=== PATIENT | male | born 1940 | race Caucasian/White ===

== ENCOUNTER 2017-01-16 08:34 | Inpatient (IN) | payer MEDICARE ==
--- NOTE | 2017-01-16 09:19 | EDM.PDOC ---
ED HPI GENERAL MEDICAL PROBLEM - General Chief Complaint: General Stated Complaint: SOB/HIGH BP Time Seen by Provider: 01/16/17 09:19 Source of Information: Reports: Patient, Family History Limitations: Reports: No Limitations - History of Present Illness INITIAL COMMENTS - FREE TEXT/NARRATIVE: pt has had increased sob. He i very sleepy and he does sleep alot. Onset: Gradual Duration: Day(s):, Getting Worse, Other (last 2-3 days he has been much more sob. ) Location: Reports: Chest, Lower Extremity, Left, Lower Extremity, Right Associated Symptoms: Reports: Shortness of Breath, Weakness - Related Data Allergies Allergy/AdvReac Type Severity Reaction Status Date / Time No Known Allergies Allergy Verified 01/16/17 08:48 Home Meds: Home Meds Aspirin/Calcium Carbonate/Mag [Aspirin Buffered 325 mg Tab] 325 mg PO DAILY 05/10 [History] Atenolol [Tenormin] 50 mg PO BID 02/04/14 [History] Doxazosin Mesylate [Cardura] 8 mg PO DAILY 02/04/14 [History] Dutasteride [Avodart] 0.5 mg PO DAILY 02/04/14 [History] Lisinopril [Lisinopril] 40 mg PO BID 02/04/14 [History] Multivit with Calcium,Iron,Min [Essential Daily] 1 each PO DAILY 02/04/14 [ History] Sildenafil [Viagra] 100 mg PO DAILY PRN 02/04/14 [History] Simvastatin [Simvastatin] 40 mg PO BEDTIME 02/04/14 [History] glyBURIDE [Glyburide] 5 mg PO BID 02/04/14 [History] metFORMIN [Glucophage XR] 750 mg PO BID 02/04/14 [History] metroNIDAZOLE [metroNIDAZOLE 0.75% Cream] 1 applic TOP BID 02/04/14 [History] Acetaminophen [Acetaminophen Extra Strength] 500 mg PO DAILY 02/15/14 [History] Hydrochlorothiazide 25 mg PO DAILY 02/15/14 [History] Triamcinolone Acetonide [Triamcinolone Acetonide 0.1% Oint] 1 dose TOP ASDIRECTED 01/16/17 [History] Past Medical History Cardiovascular History: Reports: CAD, High Cholesterol, Hypertension, [place] Genitourinary History: Reports: Prostate Disorder Musculoskeletal History: Reports: Fracture Other Musculoskeletal History: shoulder [place] 2014 Endocrine/Metabolic History: Reports: Diabetes, Type II Hematologic History: Reports: Other (See Below) Other Hematologic History: takes asa every day since bypass Oncologic (Cancer) History: Reports: Other (See Below) Other Oncologic History: skin Dermatologic History: Reports: Other (See Below) Other Dermatologic History: see 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 for 'sun spots' - Infectious Disease History Infectious Disease History: Reports: Chicken Pox, Measles, Mumps - Past Surgical History HEENT Surgical History: Reports: Tonsillectomy Cardiovascular Surgical History: Reports: Coronary Artery Bypass GI Surgical History: Reports: Hernia, Inguinal Social & Family History - Tobacco Use Smoking Status *Q: Never Smoker Second Hand Smoke Exposure: No - Alcohol Use Days Per Week of Alcohol Use: 3 Number of Drinks Per Day: 1 Total Drinks Per Week: 3 - Recreational Drug Use Recreational Drug Use: No ED ROS GENERAL - Review of Systems Review Of Systems: See Below Constitutional: Reports: No Symptoms HEENT: Reports: No Symptoms Respiratory: Reports: Shortness of Breath, Other (poor activity tolerane. ) Cardiovascular: Reports: Dyspnea on Exertion, Edema, Other (pt ststes he is often having chest pain which follows eating. He will take 3 asa and he gets relief of the pain. ) Endocrine: Reports: No Symptoms GI/Abdominal: Reports: No Symptoms : Reports: Other (pt had some incontinence of urine problems. ) Musculoskeletal: Reports: No Symptoms Skin: Reports: No Symptoms Neurological: Reports: Other ( difficulty remembering whether he took his meds or not. ) Psychiatric: Reports: No Symptoms ED EXAM, GENERAL - Physical Exam Exam: See Below Free Text/Narrative:: pt arrived with sob and leg swelling. He also states he gets chest pain usually following eating. This is reliefed by 3 asa. Exam Limited By: No Limitations General Appearance: Alert, Other (pt seemes like he is hving difficulty remembering things this am.pupils are equal and reactive. ) Ears: Normal TMs Nose: Normal Inspection Throat/Mouth: Normal Inspection Head: Atraumatic Neck: Normal Inspection Respiratory/Chest: Other (pt gets sob with activity. He does drop his sats down in the high 80s. ) GI/Abdominal: Soft, Non-Tender (Male) Exam: Deferred Rectal (Males) Exam: Deferred Back Exam: Normal Inspection Extremities: Pedal Edema, Other (pt has plus 3 pitting edema. ) Neurological: Alert, Oriented, Normal Cognition Psychiatric: Normal Affect Course - Vital Signs Last Recorded V/S: Last Vital Signs Temp 37.2 C 01/16/17 08:45 Pulse 56 L 01/16/17 11:21 Resp 14 01/16/17 11:21 BP 181/77 H 01/16/17 11:21 Pulse Ox 92 L 01/16/17 11:21 - Orders/Labs/Meds Orders: Active Orders 24 hr Category Date Time Status EKG Documentation Completion [RC] ASDIRECTED Care 01/16/17 09:06 Active Chest 2V [CR] Stat Exams 01/16/17 09:07 Taken Sodium Chloride 0.9% [Saline Flush] Med 01/16/17 09:48 Active 10 ml FLUSH ASDIRECTED PRN Saline Lock Insert [OM.PC] Routine Oth 01/16/17 09:48 Ordered EKG 12 Lead [EK] Routine Ther 01/16/17 09:06 Ordered Medication Orders Sodium Chloride (Saline Flush) 10 ml FLUSH ASDIRECTED PRN PRN Reason: Keep Vein Open Last Admin: 01/16/17 11:00 Dose: 10 ml Labs: Laboratory Tests 01/16/17 01/16/17 01/16/17 Range/Units 09:15 09:15 09:15 WBC 9.5 (4.5-11.0) K/uL RBC 4.03 L (4.30-5.90) M/uL Hgb 12.4 (12.0-15.0) g/dL Hct 36.6 L (40.0-54.0) % MCV 91 (80-98) fL MCH 31 (27-31) pg MCHC 34 (32-36) % Plt Count 160 (150-400) K/uL Neut % (Auto) 78 H (36-66) % Lymph % (Auto) 14 L (24-44) % Williamson % (Auto) 7 H (2-6) % Eos % (Auto) 0 L (2-4) % Baso % (Auto) 0 (0-1) % Sodium 141 (140-148) mmol/L Potassium 4.1 (3.6-5.2) mmol/L Chloride 105 (100-108) mmol/L Carbon Dioxide 28 (21-32) mmol/L Anion Gap 7.7 (5.0-14.0) mmol/L BUN 19 H (7-18) mg/dL Creatinine 0.8 (0.8-1.3) mg/dL Est Cr Clr Drug Dosing 70.89 mL/min Estimated GFR (MDRD) > 60 (>60) Glucose 194 H (74-106) mg/dL Calcium 9.0 (8.5-10.1) mg/dL Total Bilirubin 0.9 (0.2-1.0) mg/dL AST 14 L (15-37) U/L ALT 15 (12-78) U/L Alkaline Phosphatase 61 (46-116) U/L Troponin I (0.000-0.056) ng/mL Hop-Y-Reajrtzuzms Pept 2219 H (5-450) pg/mL Total Protein 6.7 (6.4-8.2) g/dL Albumin 3.0 L (3.4-5.0) g/dL Globulin 3.7 H (2.3-3.5) g/dL Albumin/Globulin Ratio 0.8 L (1.2-2.2) TSH, Ultra Sensitive 0.646 (0.358-3.740) uIU/mL Urine Color Urine Appearance Urine pH (4.5-8.0) Ur Specific [place] (1.008-1.030) Urine Protein (NEGATIVE) mg/dL Urine Glucose (UA) (NEGATIVE) mg/dL Urine Ketones (NEGATIVE) mg/dL Urine Occult Blood (NEGATIVE) Urine Nitrite (NEGAITVE) Urine Bilirubin (NEGATIVE) Urine Urobilinogen (NORMAL) mg/dL Ur Leukocyte Esterase (NEGATIVE) Urine RBC (0-5) Urine WBC (0-5) Ur Epithelial Cells Amorphous Sediment Urine Bacteria Urine Mucus 01/16/17 01/16/17 Range/Units 10:32 11:03 WBC (4.5-11.0) K/uL RBC (4.30-5.90) M/uL Hgb (12.0-15.0) g/dL Hct (40.0-54.0) % MCV (80-98) fL MCH (27-31) pg MCHC (32-36) % Plt Count (150-400) K/uL Neut % (Auto) (36-66) % Lymph % (Auto) (24-44) % Williamson % (Auto) (2-6) % Eos % (Auto) (2-4) % Baso % (Auto) (0-1) % Sodium (140-148) mmol/L Potassium (3.6-5.2) mmol/L Chloride (100-108) mmol/L Carbon Dioxide (21-32) mmol/L Anion Gap (5.0-14.0) mmol/L BUN (7-18) mg/dL Creatinine (0.8-1.3) mg/dL Est Cr Clr Drug Dosing mL/min Estimated GFR (MDRD) (>60) Glucose (74-106) mg/dL Calcium (8.5-10.1) mg/dL Total Bilirubin (0.2-1.0) mg/dL AST (15-37) U/L ALT (12-78) U/L Alkaline Phosphatase (46-116) U/L Troponin I < 0.017 (0.000-0.056) ng/mL Kpr-Z-Njppuszmsrk Pept (5-450) pg/mL Total Protein (6.4-8.2) g/dL Albumin (3.4-5.0) g/dL Globulin (2.3-3.5) g/dL Albumin/Globulin Ratio (1.2-2.2) TSH, Ultra Sensitive (0.358-3.740) uIU/mL Urine Color Yellow Urine Appearance Clear Urine pH 6.0 (4.5-8.0) Ur Specific [place] 1.015 (1.008-1.030) Urine Protein Trace (NEGATIVE) mg/dL Urine Glucose (UA) 100 H (NEGATIVE) mg/dL Urine Ketones 15 H (NEGATIVE) mg/dL Urine Occult Blood Negative (NEGATIVE) Urine Nitrite Negative (NEGAITVE) Urine Bilirubin Negative (NEGATIVE) Urine Urobilinogen 4 (NORMAL) mg/dL Ur Leukocyte Esterase Negative (NEGATIVE) Urine RBC 0-5 (0-5) Urine WBC 0-5 (0-5) Ur Epithelial Cells Few Amorphous Sediment Not seen Urine Bacteria Few Urine Mucus Moderate Meds: Medications Generic Name Dose Route Start Last Admin Trade Name Freq PRN Reason Stop Dose Admin Sodium Chloride 10 ml 01/16/17 09:48 01/16/17 11:00 Saline Flush FLUSH 10 ml ASDIRECTED PRN Administration Keep Vein Open Discontinued Medications Generic Name Dose Route Start Last Admin Trade Name Oswaldo PRN Reason Stop Dose Admin Furosemide 60 mg 01/16/17 09:49 01/16/17 10:59 Lasix IVPUSH 01/16/17 09:50 60 mg ONETIME ONE Administration - Re-Assessments/Exams Free Text/Narrative Re-Assessment/Exam: 01/16/17 11:57 pt had normal trop. ekg looked good. His bnp is elevated. Some congestion on the chest xray. He has put out 600 to 700 c with the 60 mg of lasix. Departure - Departure Time of Disposition: 11:59 Disposition: Admitted As Inpatient 66 Condition: Fair Clinical Impression: Right-sided heart failure, Angina at rest, Diabetes mellitus - Discharge Information Forms: ED Department Discharge Care Plan Goals: admit to Dr juan. - My Orders Last 24 Hours: My Active Orders 01/16/17 09:06 EKG Documentation Completion [RC] ASDIRECTED EKG 12 Lead [EK] Routine 01/16/17 09:07 Chest 2V [CR] Stat 01/16/17 09:48 Sodium Chloride 0.9% [Saline Flush] 10 ml FLUSH ASDIRECTED PRN Saline Lock Insert [OM.PC] Routine - Assessment/Plan Last 24 Hours: My Active Orders 01/16/17 09:06 EKG Documentation Completion [RC] ASDIRECTED EKG 12 Lead [EK] Routine 01/16/17 09:07 Chest 2V [CR] Stat 01/16/17 09:48 Sodium Chloride 0.9% [Saline Flush] 10 ml FLUSH ASDIRECTED PRN Saline Lock Insert [OM.PC] Routine
[2017-01-16] MEDS ORDERED: Sodium Chloride 0.9% 10 ML Syringe FLUSH PRN (09:48)
[2017-01-16] MEDS ORDERED: Furosemide 40 MG/4 ML VIAL IVPUSH ONE (09:49)
--- NOTE | 2017-01-16 13:42 | PCM.HP ---
H&P History of Present Illness - General Date of Service: 01/16/17 Admit Problem/Dx: Admission Diagnosis/Problem Admission Diagnosis/Problem CHF, Congestive heart failure Source of Information: Patient, Family, Provider History Limitations: Reports: No Limitations - History of Present Illness Initial Comments - Free Text/Narative: Isaiah presented to the emergency room with progressive shortness of breath, fatigue and lower extremity edema. He reports the lower extremity edema has been present for approximately one year and is not dramatically worse than usual. He shortness of breath however has been progressing and he is been more fatigued. He does not report significant orthopnea but also reports that he sleeps in the chair for the second half of the night most nights of the week. He does have some frequent urination at night but no difficulties during the day. Blood pressures at home have been running high and this morning were greater than 200 systolic. No complaints of headache or blurry vision at this time. He does report some difficulty with discomfort in his chest. This occurs after eating spicy foods and usually occurs after he lays down at night to go to sleep. The pain does get better after he gets out of bed and has 3 aspirin. He has not had any exertional difficulties that produce similar discomfort. No complaints of exertional chest pain. Workup in the emergency room was suggestive of congestive heart failure including small effusions on chest x-ray, elevated BNP and physical examination. He has received a dose of furosemide and will be admitted for further workup and management. His last stress test was about 3 years ago and he has not had a previous echocardiogram that I can find. - Related Data Allergies/Adverse Reactions: Allergies Allergy/AdvReac Type Severity Reaction Status Date / Time No Known Allergies Allergy Verified 01/16/17 08:48 Home Medications: Home Meds Atenolol [Tenormin] 50 mg PO BID 02/04/14 [History] Doxazosin Mesylate [Cardura] 8 mg PO DAILY 02/04/14 [History] Dutasteride [Avodart] 0.5 mg PO DAILY 02/04/14 [History] Lisinopril [Lisinopril] 40 mg PO BID 02/04/14 [History] Multivit with Calcium,Iron,Min [Essential Daily] 1 each PO DAILY 02/04/14 [ History] Sildenafil [Viagra] 100 mg PO DAILY PRN 02/04/14 [History] Simvastatin [Simvastatin] 40 mg PO BEDTIME 02/04/14 [History] glyBURIDE [Glyburide] 5 mg PO BID 02/04/14 [History] metroNIDAZOLE [metroNIDAZOLE 0.75% Cream] 1 applic TOP BID 02/04/14 [History] Acetaminophen [Acetaminophen Extra Strength] 500 mg PO DAILY 02/15/14 [History] Hydrochlorothiazide 25 mg PO DAILY 02/15/14 [History] Aspirin [Ecotrin] 325 mg PO BEDTIME 01/16/17 [History] Triamcinolone Acetonide [Triamcinolone Acetonide 0.1% Oint] 1 dose TOP ASDIRECTED 01/16/17 [History] metFORMIN [Glucophage] 750 mg PO BIDMEALS 01/16/17 [History] Past Medical History Cardiovascular History: Reports: CAD, High Cholesterol, Hypertension, [place] Genitourinary History: Reports: Prostate Disorder Musculoskeletal History: Reports: Fracture Other Musculoskeletal History: shoulder [place] 2014 Endocrine/Metabolic History: Reports: Diabetes, Type II Hematologic History: Reports: Other (See Below) Other Hematologic History: takes asa every day since bypass Oncologic (Cancer) History: Reports: Other (See Below) Other Oncologic History: skin Dermatologic History: Reports: Other (See Below) Other Dermatologic History: 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 for 'sun spots' - Infectious Disease History Infectious Disease History: Reports: Chicken Pox, Measles, Mumps - Past Surgical History HEENT Surgical History: Reports: Tonsillectomy Cardiovascular Surgical History: Reports: Coronary Artery Bypass GI Surgical History: Reports: Hernia, Inguinal Social & Family History - Family History Cardiac: Reports: CAD - Tobacco Use Smoking Status *Q: Never Smoker Second Hand Smoke Exposure: No - Caffeine Use Caffeine Use: Reports: None - Alcohol Use Days Per Week of Alcohol Use: 3 Number of Drinks Per Day: 1 Total Drinks Per Week: 3 - Recreational Drug Use Recreational Drug Use: No H&P Review of Systems - Review of Systems: Review Of Systems: See Below Free Text/Narrative: A complete 12 point review of systems was obtained. Pertinent positives and negatives are noted in the history of present illness. All other systems were reviewed and were negative except as noted. Exam - Exam Exam: See Below - Vital Signs Vital Signs: Last Vital Signs Temp 36.8 C 01/16/17 12:05 Pulse 50 L 01/16/17 12:05 Resp 16 01/16/17 12:05 BP 141/104 H 01/16/17 12:05 Pulse Ox 95 01/16/17 12:05 Weight: 101.605 kg - Exam Quality Assessment: No: Supplemental Oxygen General: Alert, Oriented, Cooperative. No: Mild Distress HEENT: Conjunctiva Clear, Mucosa Moist & Speculator. No: Scleral Icterus Neck: Supple, Trachea Midline. No: Lymphadenopathy, JVD Lungs: Clear to Auscultation, Normal Respiratory Effort Cardiovascular: Regular Rate, Regular Rhythm. No: Systolic Murmur GI/Abdominal Exam: Normal Bowel Sounds, Soft, Non-Tender, No Distention Back Exam: Normal Inspection, Full Range of Motion Extremities: Pedal Edema (pitting edema both lower legs to the mid espinoza area). No: Increased Warmth Skin: Warm, Dry Neuro Extensive - Mental Status: Alert, Oriented x3 Neuro Extensive - Motor, Sensory, Reflexes: CN II-XII Intact. No: Dysarthria, Abnormal Motor, Tremor Psychiatric: Alert, Normal Affect - Patient Data Lab Results Last 24 hrs: Laboratory Results - last 24 hr 01/16/17 01/16/17 01/16/17 Range/Units 09:15 09:15 09:15 WBC 9.5 (4.5-11.0) K/uL RBC 4.03 L (4.30-5.90) M/uL Hgb 12.4 (12.0-15.0) g/dL Hct 36.6 L (40.0-54.0) % MCV 91 (80-98) fL MCH 31 (27-31) pg MCHC 34 (32-36) % Plt Count 160 (150-400) K/uL Neut % (Auto) 78 H (36-66) % Lymph % (Auto) 14 L (24-44) % Edgar % (Auto) 7 H (2-6) % Eos % (Auto) 0 L (2-4) % Baso % (Auto) 0 (0-1) % Sodium 141 (140-148) mmol/L Potassium 4.1 (3.6-5.2) mmol/L Chloride 105 (100-108) mmol/L Carbon Dioxide 28 (21-32) mmol/L Anion Gap 7.7 (5.0-14.0) mmol/L BUN 19 H (7-18) mg/dL Creatinine 0.8 (0.8-1.3) mg/dL Est Cr Clr Drug Dosing 70.89 mL/min Estimated GFR (MDRD) > 60 (>60) Glucose 194 H (74-106) mg/dL Calcium 9.0 (8.5-10.1) mg/dL Total Bilirubin 0.9 (0.2-1.0) mg/dL AST 14 L (15-37) U/L ALT 15 (12-78) U/L Alkaline Phosphatase 61 (46-116) U/L Troponin I (0.000-0.056) ng/mL Mfv-B-Ggorskeldlc Pept 2219 H (5-450) pg/mL Total Protein 6.7 (6.4-8.2) g/dL Albumin 3.0 L (3.4-5.0) g/dL Globulin 3.7 H (2.3-3.5) g/dL Albumin/Globulin Ratio 0.8 L (1.2-2.2) TSH, Ultra Sensitive 0.646 (0.358-3.740) uIU/mL Urine Color Urine Appearance Urine pH (4.5-8.0) Ur Specific [place] (1.008-1.030) Urine Protein (NEGATIVE) mg/dL Urine Glucose (UA) (NEGATIVE) mg/dL Urine Ketones (NEGATIVE) mg/dL Urine Occult Blood (NEGATIVE) Urine Nitrite (NEGAITVE) Urine Bilirubin (NEGATIVE) Urine Urobilinogen (NORMAL) mg/dL Ur Leukocyte Esterase (NEGATIVE) Urine RBC (0-5) Urine WBC (0-5) Ur Epithelial Cells Amorphous Sediment Urine Bacteria Urine Mucus 01/16/17 01/16/17 Range/Units 10:32 11:03 WBC (4.5-11.0) K/uL RBC (4.30-5.90) M/uL Hgb (12.0-15.0) g/dL Hct (40.0-54.0) % MCV (80-98) fL MCH (27-31) pg MCHC (32-36) % Plt Count (150-400) K/uL Neut % (Auto) (36-66) % Lymph % (Auto) (24-44) % Edgar % (Auto) (2-6) % Eos % (Auto) (2-4) % Baso % (Auto) (0-1) % Sodium (140-148) mmol/L Potassium (3.6-5.2) mmol/L Chloride (100-108) mmol/L Carbon Dioxide (21-32) mmol/L Anion Gap (5.0-14.0) mmol/L BUN (7-18) mg/dL Creatinine (0.8-1.3) mg/dL Est Cr Clr Drug Dosing mL/min Estimated GFR (MDRD) (>60) Glucose (74-106) mg/dL Calcium (8.5-10.1) mg/dL Total Bilirubin (0.2-1.0) mg/dL AST (15-37) U/L ALT (12-78) U/L Alkaline Phosphatase (46-116) U/L Troponin I < 0.017 (0.000-0.056) ng/mL Esa-O-Exkyhwmgvqf Pept (5-450) pg/mL Total Protein (6.4-8.2) g/dL Albumin (3.4-5.0) g/dL Globulin (2.3-3.5) g/dL Albumin/Globulin Ratio (1.2-2.2) TSH, Ultra Sensitive (0.358-3.740) uIU/mL Urine Color Yellow Urine Appearance Clear Urine pH 6.0 (4.5-8.0) Ur Specific [place] 1.015 (1.008-1.030) Urine Protein Trace (NEGATIVE) mg/dL Urine Glucose (UA) 100 H (NEGATIVE) mg/dL Urine Ketones 15 H (NEGATIVE) mg/dL Urine Occult Blood Negative (NEGATIVE) Urine Nitrite Negative (NEGAITVE) Urine Bilirubin Negative (NEGATIVE) Urine Urobilinogen 4 (NORMAL) mg/dL Ur Leukocyte Esterase Negative (NEGATIVE) Urine RBC 0-5 (0-5) Urine WBC 0-5 (0-5) Ur Epithelial Cells Few Amorphous Sediment Not seen Urine Bacteria Few Urine Mucus Moderate Result Diagrams: 01/16/17 09:15 01/16/17 09:15 Imaging Impressions Last 24 hrs: CXR - images personally reviewed - heart size is normal, no infiltrate or mass. Tiny bilateral effusions. Prominent pulmonary vasculature but no cephalization. EKG INTERPRETATION EKG Date: 01/16/17 Rhythm: NSR Rate (Beats/Min): 55 [place]: Normal P-Wave: Present QRS: Normal ST-T: Normal QT: Normal *Q Meaningful Use (ADM) - VTE *Q VTE Criteria *Q: - VTE Risk Assess *Q Each Risk Factor Represents 1 Point: Swollen Legs, Current, Obesity (BMI greater than 30), Congestive Heart Failure, Less than 1 Month Total Score 1 Point Risk Factors: 3 Each Risk Factor Represents 2 Points: None Total Score 2 Point Risk Factors: 0 Each Risk Factor Represents 3 Points: Age 75 Years or Greater Total Score 3 Point Risk Factors: 3 Each Risk Factor Represents 5 Points: None Total Score 5 Point Risk Factors: 0 Venous Thromboembolism Risk Factor Score *Q: 6 - Stroke *Q Stroke Criteria *Q: - AMI *Q AMI Criteria *Q: - Problem List (1) CHF (congestive heart failure), NYHA class III SNOMED Code(s): 554063350, 729012852 ICD Code: I50.9 - HEART FAILURE, UNSPECIFIED Status: Acute Current Visit : Yes Qualifiers: Congestive heart failure type: unspecified congestive heart failure type Qualified Code(s): I50.9 - Heart failure, unspecified (2) Secondary hypertension SNOMED Code(s): 74609050 ICD Code: I15.9 - SECONDARY HYPERTENSION, UNSPECIFIED Status: Chronic Current Visit: Yes (3) Diabetes mellitus type 2 in obese SNOMED Code(s): 38816292 ICD Code: E11.69 - TYPE 2 DIABETES MELLITUS WITH OTHER SPECIFIED COMPLICATION ; E66.9 - OBESITY, UNSPECIFIED Status: Chronic Current Visit: Yes Problem List Initiated/Reviewed/Updated: Yes Orders Last 24hrs: Active Orders 24 hr Category Date Time Status Patient Status Manage Transfer [TRANSFER] Routine ADT 01/16/17 13:29 Ordered EKG Documentation Completion [RC] ASDIRECTED Care 01/16/17 09:06 Active Chest 2V [CR] Stat Exams 01/16/17 09:07 Taken Sodium Chloride 0.9% [Saline Flush] Med 01/16/17 09:48 Active 10 ml FLUSH ASDIRECTED PRN Saline Lock Insert [OM.PC] Routine Oth 01/16/17 09:48 Ordered Resuscitation Status Routine Resus Stat 01/16/17 13:30 Ordered EKG 12 Lead [EK] Routine Ther 01/16/17 09:06 Ordered Medication Orders Sodium Chloride (Saline Flush) 10 ml FLUSH ASDIRECTED PRN PRN Reason: Keep Vein Open Last Admin: 01/16/17 11:00 Dose: 10 ml Assessment/Plan Comment:: Assessment and plan - Subacute decompensated congestive heart failure - diastolic heart failure suspected given duration of symptoms and physical examination findings. He does have long-standing diabetes and hypertension that could lead to diastolic dysfunction. No previous echocardiogram. Previous ejection fraction was 55% 3 years ago. He would benefit from inpatient workup and management including medication titration, IV diuresis and echocardiogram. -Repeat furosemide dose in the morning -Strict intake and output monitoring -Daily weight -Continue ARTIE inhibitor -Change beta taryn to carvedilol twice daily -ROMNA stockings to help with edema -Echocardiogram in the morning -CHF education Atypical chest discomfort - Sounds more like a gastrointestinal issue to me with symptoms that started when he lays down after eating spicy foods. I did encourage him to use Tums as needed and to avoid late meals, especially ones with spicy food. Secondary hypertension - blood pressure suboptimally controlled, could be some relationship with the diastolic heart failure and volume overload. Planning to continue ARTIE inhibitor and adjusting beta taryn as discussed above. A third agent may be required if there is suboptimal control. He has been on hydrochlorothiazide but I'm going to discontinue that in favor of the furosemide. -Continue lisinopril -Start carvedilol -Start furosemide -Monitor blood pressures closely Type 2 diabetes mellitus - On oral medications and has been well controlled historically. -Continue home medications -Twice daily Accu-Cheks Maintenance issues - - DVT prophylaxis - enoxaparin - GI prophylaxis - no daily symptoms, not indicated - Nutrition - diabetic diet - Pollack catheter - Not indicated CODE STATUS - Full Code Admission justification - This patient will be admitted for inpatient services and is medically appropriate meeting medical necessity for inpatient admission as outlined in my documentation. I reasonably expect the patient will require inpatient services that span a period time over 2 midnights. I reasonably expect this patient to be discharged or transferred within 96 hours [facility] Disposition - anticipate discharge to home after the hospital stay Primary care physician - Dr Earnest Chan M.D.
[2017-01-16] MEDS ORDERED: Polyethylene Glycol 3350 Powder 17 GM Packet PO PRN (14:36)
[2017-01-16] MEDS ORDERED: Acetaminophen 325 MG Tab PO PRN (14:36)
[2017-01-16] MEDS ORDERED: Ondansetron 4 MG Tab.DIS PO PRN (14:36)
[2017-01-16] MEDS ORDERED: Calcium Carbonate 500 MG Tab.Chew PO PRN (14:36)
[2017-01-16] MEDS: metFORMIN 500 MG Tab PO SCH (17:15)
[2017-01-16] MEDS ORDERED: METFORMIN 750 MG PO SCH (21:00)
[2017-01-16] MEDS: Carvedilol 12.5 MG Tab PO SCH (21:45)
[2017-01-16] MEDS: Aspirin 325 MG Tab.EC PO SCH (21:48)
[2017-01-16] MEDS: Lisinopril 20 MG Tab PO SCH (21:48)
[2017-01-16] MEDS: Simvastatin 20 MG Tab PO SCH (21:48)
[2017-01-17] MEDS: metFORMIN 500 MG Tab PO SCH ×2 (07:34→16:58)
--- NOTE | 2017-01-17 09:17 | CR ---
Chest 2V FINDINGS: Sternal wires are in place The heart and vascular structures are normal in appearance. No infiltrates or effusions are demonstrated. The skeletal structures are unremarkable. IMPRESSION: Negative exam.
[2017-01-17] MEDS: Doxazosin 4 MG Tab PO SCH (09:22)
[2017-01-17] MEDS: Lisinopril 20 MG Tab PO SCH ×2 (09:24→20:29)
[2017-01-17] MEDS: Dutasteride 0.5 MG Cap PO SCH (09:26)
[2017-01-17] MEDS: Enoxaparin 40 MG/0.4 ML Syringe SUBCUT SCH (09:26)
[2017-01-17] MEDS: Carvedilol 12.5 MG Tab PO SCH ×2 (09:27→20:29)
[2017-01-17] MEDS: Furosemide 40 MG/4 ML VIAL IVPUSH SCH (09:28)
[2017-01-17] MEDS: hydrALAZINE 10 MG Tab PO SCH ×3 (10:28→21:22)
--- NOTE | 2017-01-17 13:52 | PCM.PN ---
- General Info Date of Service: 01/17/17 Functional Status: Reports: Tolerating Diet, Urinating - Review of Systems General: Denies: Fever, Chills Pulmonary: Reports: Shortness of Breath. Denies: Cough, Sputum, Wheezing Cardiovascular: Reports: Dyspnea on Exertion, Edema. Denies: Chest Pain, Palpitations, Orthopnea, PND Gastrointestinal: Reports: No Symptoms Musculoskeletal: Reports: No Symptoms Systems Review Comment:: This patient has felt mildly to moderately improved from admission with less shortness of breath in improvement in peripheral edema. Blood pressure had remained elevated through the night but is improved today with addition of hydralazine to current antihypertensive regimen. Echocardiogram shows preserved left ventricular function with left ventricular hypertrophy, left atrial enlargement, moderate mitral regurgitation, and elevated right-sided pressures. - Patient Data Vitals - most recent: Last Vital Signs Temp 98.9 F 01/17/17 10:28 Pulse 56 L 01/17/17 10:28 Resp 18 01/17/17 10:28 BP 165/63 H 01/17/17 10:28 Pulse Ox 93 L 01/17/17 10:28 Weight - most recent: 227 lb 15.327 oz I&O - last 24 hours: Intake & Output 01/16/17 01/17/17 01/17/17 22:59 06:59 14:59 Intake Total 480 100 420 Output Total 475 350 900 Balance 5 -250 -480 Lab Results last 24 hrs: Laboratory Results - last 24 hr 01/17/17 01/17/17 Range/Units 05:40 05:40 WBC 9.2 (4.5-11.0) K/uL RBC 4.19 L (4.30-5.90) M/uL Hgb 13.0 (12.0-15.0) g/dL Hct 38.1 L (40.0-54.0) % MCV 91 (80-98) fL MCH 31 (27-31) pg MCHC 34 (32-36) % Plt Count 161 (150-400) K/uL Sodium 141 (140-148) mmol/L Potassium 3.9 (3.6-5.2) mmol/L Chloride 104 (100-108) mmol/L Carbon Dioxide 30 (21-32) mmol/L Anion Gap 7.0 (5.0-14.0) mmol/L BUN 19 H (7-18) mg/dL Creatinine 0.8 (0.8-1.3) mg/dL Est Cr Clr Drug Dosing 70.89 mL/min Estimated GFR (MDRD) > 60 (>60) Glucose 166 H (74-106) mg/dL Calcium 9.0 (8.5-10.1) mg/dL Magnesium 1.5 L (1.8-2.4) mg/dL Med Orders - Current: Current Medications Acetaminophen (Tylenol) 650 mg PO Q4H PRN PRN Reason: Pain (Mild 1-3)/fever Aspirin (Ecotrin) 325 mg PO BEDTIME [facility] Last Admin: 01/16/17 21:48 Dose: 325 mg Calcium Carbonate/Glycine (Tums) 1,000 mg PO Q2H PRN PRN Reason: Indigestion Carvedilol (Coreg) 12.5 mg PO BID [facility] Last Admin: 01/17/17 09:27 Dose: 12.5 mg Doxazosin Mesylate (Cardura) 8 mg PO DAILY [facility] Last Admin: 01/17/17 09:22 Dose: 8 mg Dutasteride (Avodart) 0.5 mg PO DAILY [facility] Last Admin: 01/17/17 09:26 Dose: 0.5 mg Enoxaparin Sodium (Lovenox) 40 mg SUBCUT DAILY [facility] Last Admin: 01/17/17 09:26 Dose: 40 mg Furosemide (Lasix) 40 mg IVPUSH DAILY [facility] Last Admin: 01/17/17 09:28 Dose: 40 mg Glyburide (Micronase) 5 mg PO BID [facility] Last Admin: 01/17/17 09:25 Dose: 5 mg Hydralazine HCl (Apresoline) 10 mg PO Q6H [facility] Last Admin: 01/17/17 10:28 Dose: 10 mg Lisinopril (Prinivil) 40 mg PO BID [facility] Last Admin: 01/17/17 09:24 Dose: 40 mg Metformin HCl (Glucophage) 750 mg PO BIDMEALS [facility] Last Admin: 01/17/17 07:34 Dose: 750 mg Ondansetron HCl (Zofran Odt) 4 mg PO Q6H PRN PRN Reason: Nausea able to take PO Polyethylene Glycol (Miralax) 17 gm PO DAILY PRN PRN Reason: Constipation Senna/Docusate Sodium (Senna Plus) 1 tab PO BID PRN PRN Reason: Constipation Simvastatin (Zocor) 40 mg PO BEDTIME [facility] Last Admin: 01/16/17 21:48 Dose: 40 mg Sodium Chloride (Saline Flush) 10 ml FLUSH ASDIRECTED PRN PRN Reason: Keep Vein Open Last Admin: 01/16/17 11:00 Dose: 10 ml Discontinued Medications Furosemide (Lasix) 60 mg IVPUSH ONETIME ONE Stop: 01/16/17 09:50 Last Admin: 01/16/17 10:59 Dose: 60 mg - Exam General: alert, oriented, cooperative, mild distress Lungs: Clear to Auscultation, Normal Respiratory Effort Cardiovascular: Regular Rate, Regular Rhythm, No Murmurs GI/Abdominal Exam: Normal Bowel Sounds, Soft, Non-Tender, No Organomegaly, No Distention Extremities: Normal Range of Motion, Non-Tender, Pedal Edema Skin: warm, dry, intact - Problem List Review Problem List Initiated/Reviewed/Updated: Yes - My Orders Last 24 Hours: My Active Orders 01/17/17 10:00 hydrALAZINE [Apresoline] 10 mg PO Q6H 01/18/17 05:00 BASIC METABOLIC PANEL,BMP [CHEM] Timed - Plan Plan:: Assessment and plan - Congestive heart failure with preserved left ventricular function- echocardiogram shows normal LV function, left H enlargement, moderate mitral regurgitation, and elevated right-sided pressures -Repeat furosemide dose in the morning -Strict intake and output monitoring -Daily weight -Continue ARTIE inhibitor -Change beta taryn to carvedilol twice daily -ROMAN stockings to help with edema -CHF education -Strict 2 g sodium diet Atypical chest discomfort - Sounds more like a gastrointestinal issue to me with symptoms that started when he lays down after eating spicy foods. I did encourage him to use Tums as needed and to avoid late meals, especially ones with spicy food. Secondary hypertension - left pressures have remained elevated since admission, he is on a maximal dose of lisinopril and I do not think will tolerate more beta taryn because of bradycardia. Calcium channel blockers do not seem to be a good option because of rate slowing effect as well as peripheral edema. -Start hydralazine 10 mg by mouth every 6 hours -Continue lisinopril -Start carvedilol -Start furosemide -Monitor blood pressures closely Type 2 diabetes mellitus - On oral medications and has been well controlled historically. -Continue home medications -Twice daily Accu-Cheks Maintenance issues - - DVT prophylaxis - enoxaparin - GI prophylaxis - no daily symptoms, not indicated - Nutrition - diabetic diet - Pollack catheter - Not indicated CODE STATUS - Full Code Admission justification - This patient will be admitted for inpatient services and is medically appropriate meeting medical necessity for inpatient admission as outlined in my documentation. I reasonably expect the patient will require inpatient services that span a period time over 2 midnights. I reasonably expect this patient to be discharged or transferred within 96 hours after admission to the [facility]. Disposition - anticipate discharge to home after the hospital stay Primary care physician - Dr Tinoco
[2017-01-17] MEDS: Aspirin 325 MG Tab.EC PO SCH (20:28)
[2017-01-17] MEDS: Simvastatin 20 MG Tab PO SCH (20:28)
[2017-01-18] MEDS: hydrALAZINE 10 MG Tab PO SCH ×2 (03:21→09:32)
[2017-01-18 07:22] VITALS: BP 166/78
--- NOTE | 2017-01-18 07:41 | ECHO ---
REFERRING PRACTITIONER: 1. AO ROOT: 307 (NL = 2.0-3.7) 2. AORTIC VALVE EXCURSION: 3. LA: 5.85 CM (NL = 1.9-4.0) 4. RV: 2.93 (NL = .09-2.6) 5. LV ROWE: 5.34 (NL = 3.5-5.7) 6. LV SYST: 4.33 (NL = 2.2-4.3) 7. FRACTIONAL SHORTENING: (2542) 8. EJECTION FRACTION: 55% TO 60% (5075) 9. IVS: 1.44 (NL = 0.6-1.1) 10. LVPW: 1.52 (NL = 0.6 1.1) PROCEDURE: Echocardiogram. INDICATION: Congestive heart failure. Evaluate left ventricular function and valvular status. TECHNIQUE: By 2-D echo left ventricular function appears to be normal consistent with estimated ejection fraction of 55% to 60%. There are no specific wall motion abnormalities, but there was appearance of concentric left ventricular hypertrophy. There was no pericardial effusion noted on this study. There was left atrial enlargement. Borderline right ventricular enlargement with preserved right ventricular function. Other chambers appeared to be within normal range for size. The aortic valve leaflets and anulus appear to be normal. There was some calcification of the mitral valve anulus. Tricuspid and pulmonic valves were structurally normal in appearance. By Doppler and color Doppler, there was elevation in estimated right ventricular pressure at 70 mmHg. There was moderate MR and [id number] TR. IMPRESSION: 1. Normal left ventricular function. Estimated ejection fraction of 55% to 60% . 2. Concentric left ventricular hypertrophy. 3. Left atrial enlargement. 4. Borderline right ventricular enlargement with preserved right ventricular function. 5. Elevation in estimated right ventricular pressure at 70 mmHg. 6. Moderate mitral regurgitation. 7. Mild to moderate tricuspid regurgitation. /[id number] CC: Isaiah Tinoco MD MTDD
[2017-01-18] MEDS: Dutasteride 0.5 MG Cap PO SCH (09:28)
[2017-01-18] MEDS: metFORMIN 500 MG Tab PO SCH (09:28)
[2017-01-18] MEDS: Lisinopril 20 MG Tab PO SCH (09:30)
[2017-01-18] MEDS: Enoxaparin 40 MG/0.4 ML Syringe SUBCUT SCH (09:31)
[2017-01-18] MEDS: Doxazosin 4 MG Tab PO SCH (09:31)
[2017-01-18] MEDS: Carvedilol 12.5 MG Tab PO SCH (09:32)
[2017-01-18] MEDS: Furosemide 40 MG/4 ML VIAL IVPUSH SCH (09:32)
--- NOTE | 2017-01-18 12:20 | PCM.DCSUM1 ---
Discharge Summary - Hospital Course Brief History: Mr. De Leon is a 76-year-old gentleman who was admitted through the emergency department with shortness of breath and peripheral edema secondary to congestive heart failure. - Discharge Data Discharge Date: 01/18/17 Discharge Disposition: Home, Self-Care 01 Condition: Fair - Discharge Diagnosis/Problem(s) (1) CHF (congestive heart failure), NYHA class III SNOMED Code(s): 602568770, 099911030 ICD Code: I50.9 - HEART FAILURE, UNSPECIFIED Status: Acute Current Visit : Yes Qualifiers: Congestive heart failure type: unspecified congestive heart failure type Qualified Code(s): I50.9 - Heart failure, unspecified (2) Diabetes mellitus SNOMED Code(s): 99587524 ICD Code: E11.9 - TYPE 2 DIABETES MELLITUS WITHOUT COMPLICATIONS Status: Acute Current Visit: Yes (3) Right-sided heart failure Status: Acute Current Visit: Yes (4) HTN, Essential hypertension SNOMED Code(s): 57798326 ICD Code: I10 - ESSENTIAL (PRIMARY) HYPERTENSION Status: Chronic Current Visit: No - Patient Summary/Data Consults: Consultations 01/17/17 13:53 Consult to Dairy Nutritionist [CONS] Routine Comment: Physician Instructions: Quantity: Reason for Consult: Please review 2 g sodium diet 01/18/17 11:17 Consult to Pharmacy [CONS] Routine Comment: Physician Instructions: Quantity: Reason for Consult: Please review discharge medication changes with patient and . Hospital Course: Mr. Ahuja is a 76-year-old gentleman with a known history of coronary artery disease as well as type 2 diabetes mellitus. He had developed progressive peripheral edema as well as shortness of breath with minimal activity. On evaluation in the emergency department was noted to have significant peripheral edema as well as evidence of pulmonary edema and uncontrolled hypertension. He was felt to have congestive heart failure causing current symptoms and findings likely secondary to his long-standing hypertension. He was admitted to the hospital and given IV diuretics on a daily basis, with this therapy his shortness of breath improved dramatically and his peripheral edema had essentially resolved by the time of discharge. Echocardiogram was obtained which did show preserved left ventricular function associated with moderate mitral regurgitation, left atrial enlargement, and elevation in right-sided pressures. He was felt to have congestive heart failure with preserved left ventricular function. On admission his atenolol was stopped and he was switched to carvedilol 12.5 mg twice daily. His hydrochlorothiazide was discontinued and at the time of discharge he will be placed on daily furosemide 20 mg each morning. For management of his uncontrolled blood pressure, he was started on hydralazine 10 mg 4 times daily. Hydralazine was chosen as his heart rate was in the 50s and 60s and it was felt that he would not tolerate further increase in his beta taryn therapy or one of the rate slowing calcium channel blockers. His ARTIE inhibitor therapy was felt to be at maximum dose and I did not feel that he would tolerate Norvasc because of the peripheral edema. With the addition of hydralazine his blood pressure improved significantly but was not yet within desired range at the time of discharge and will require further monitoring and dose adjustment on an outpatient basis. We reviewed with him the importance of a 2 g sodium diet and he will be seen by the dietitian to further review this diet prior to discharge. Pharmacist will see the patient also prior to discharge to review medication changes and new medications. Activity will be as tolerated and he will be on a diabetic 2 g sodium diet. Follow-up appointment will be scheduled with his primary care provider Dr. Murillo within one week. - Patient Instructions Diet: Low Sodium, Diabetic Diet Activity: As Tolerated Other/Special Instructions: [facility] w/ Dr. Tinoco within 1 week. Lab then; CBC, BMP - Discharge Plan Prescriptions/Med Rec: Carvedilol [Coreg] 12.5 mg PO BID #60 tablet Furosemide 20 mg PO DAILY #30 tablet hydrALAZINE [Apresoline] 10 mg PO Q6H #120 tablet Home Medications: Home Meds Doxazosin Mesylate [Cardura] 8 mg PO DAILY 02/04/14 [History] Dutasteride [Avodart] 0.5 mg PO DAILY 02/04/14 [History] Lisinopril 40 mg PO BID 02/04/14 [History] Multivit with Calcium,Iron,Min [Essential Daily] 1 each PO DAILY 02/04/14 [ History] Sildenafil [Viagra] 100 mg PO DAILY PRN 02/04/14 [History] Simvastatin 40 mg PO BEDTIME 02/04/14 [History] glyBURIDE [Glyburide] 5 mg PO BID 02/04/14 [History] metroNIDAZOLE [metroNIDAZOLE 0.75% Cream] 1 applic TOP BID 02/04/14 [History] Acetaminophen [Acetaminophen Extra Strength] 500 mg PO DAILY 02/15/14 [History] Aspirin [Ecotrin] 325 mg PO BEDTIME 01/16/17 [History] Triamcinolone Acetonide [Triamcinolone Acetonide 0.1% Oint] 1 dose TOP ASDIRECTED 01/16/17 [History] metFORMIN [Glucophage] 750 mg PO BIDMEALS 01/16/17 [History] Carvedilol [Coreg] 12.5 mg PO BID #60 tablet 01/18/17 [Rx] Furosemide 20 mg PO DAILY #30 tablet 01/18/17 [Rx] hydrALAZINE [Apresoline] 10 mg PO Q6H #120 tablet 01/18/17 [Rx] Forms: ED Department Discharge Referrals: Isaiah Tinoco MD [Primary Care Provider] - - Patient Data Vitals - Most Recent: Last Vital Signs Temp 97.7 F 01/18/17 07:20 Pulse 68 01/18/17 09:32 Resp 16 01/18/17 07:20 BP 166/78 H 01/18/17 09:32 Pulse Ox 93 L 01/18/17 07:20 Weight - Most Recent: 226 lb 9.6 oz I&O - Last 24 hours: Intake & Output 01/17/17 01/18/17 01/18/17 22:59 06:59 14:59 Intake Total 680 240 Output Total 200 400 Balance 480 -160 Lab Results - Last 24 hrs: Laboratory Results - last 24 hr 01/18/17 Range/Units 05:15 Sodium 142 (140-148) mmol/L Potassium 4.1 (3.6-5.2) mmol/L Chloride 105 (100-108) mmol/L Carbon Dioxide 30 (21-32) mmol/L Anion Gap 7.2 (5.0-14.0) mmol/L BUN 27 H (7-18) mg/dL Creatinine 0.8 (0.8-1.3) mg/dL Est Cr Clr Drug Dosing 71.25 mL/min Estimated GFR (MDRD) > 60 (>60) Glucose 125 H (74-106) mg/dL Calcium 8.7 (8.5-10.1) mg/dL Med Orders - Current: Current Medications Acetaminophen (Tylenol) 650 mg PO Q4H PRN PRN Reason: Pain (Mild 1-3)/fever Aspirin (Ecotrin) 325 mg PO BEDTIME [facility] Last Admin: 01/17/17 20:28 Dose: 325 mg Calcium Carbonate/Glycine (Tums) 1,000 mg PO Q2H PRN PRN Reason: Indigestion Carvedilol (Coreg) 12.5 mg PO BID [facility] Last Admin: 01/18/17 09:32 Dose: 12.5 mg Doxazosin Mesylate (Cardura) 8 mg PO DAILY [facility] Last Admin: 01/18/17 09:31 Dose: 8 mg Dutasteride (Avodart) 0.5 mg PO DAILY [facility] Last Admin: 01/18/17 09:28 Dose: 0.5 mg Enoxaparin Sodium (Lovenox) 40 mg SUBCUT DAILY [facility] Last Admin: 01/18/17 09:31 Dose: 40 mg Furosemide (Lasix) 40 mg IVPUSH DAILY [facility] Last Admin: 01/18/17 09:32 Dose: 40 mg Glyburide (Micronase) 5 mg PO BID [facility] Last Admin: 01/18/17 09:29 Dose: 5 mg Hydralazine HCl (Apresoline) 10 mg PO Q6H [facility] Last Admin: 01/18/17 09:32 Dose: 10 mg Lisinopril (Prinivil) 40 mg PO BID [facility] Last Admin: 01/18/17 09:30 Dose: 40 mg Metformin HCl (Glucophage) 750 mg PO BIDMEALS [facility] Last Admin: 01/18/17 09:28 Dose: 750 mg Ondansetron HCl (Zofran Odt) 4 mg PO Q6H PRN PRN Reason: Nausea able to take PO Polyethylene Glycol (Miralax) 17 gm PO DAILY PRN PRN Reason: Constipation Senna/Docusate Sodium (Senna Plus) 1 tab PO BID PRN PRN Reason: Constipation Simvastatin (Zocor) 40 mg PO BEDTIME [facility] Last Admin: 01/17/17 20:28 Dose: 40 mg Sodium Chloride (Saline Flush) 10 ml FLUSH ASDIRECTED PRN PRN Reason: Keep Vein Open Last Admin: 01/16/17 11:00 Dose: 10 ml Discontinued Medications Furosemide (Lasix) 60 mg IVPUSH ONETIME ONE Stop: 01/16/17 09:50 Last Admin: 01/16/17 10:59 Dose: 60 mg *Q Meaningful Use (DIS) - VTE *Q VTE Criteria *Q: - Stroke *Q Stroke Criteria *Q: - AMI *Q AMI Criteria *Q:
== END 2017-01-18 13:30 | disposition home or self-care (01) | DRG 292 ==
LOC: JP.ED 08:34 → JP.2SS 13:29
PROVIDERS: ADMIT Internal Medicine; ATTEND Hospitalist
DX: I25.708 Atherosclerosis of coronary artery bypass graft(s), unspecified, with other forms of angina pectoris (principal); I11.0 Hypertensive heart disease with heart failure; I25.810 Atherosclerosis of coronary artery bypass graft(s) without angina pectoris; I50.9 Heart failure, unspecified; Z95.1 Presence of aortocoronary bypass graft; E11.9 Type 2 diabetes mellitus without complications; Z79.84 Long term (current) use of oral hypoglycemic drugs; R07.89 Other chest pain; E78.00 Pure hypercholesterolemia, unspecified; I25.2 Old myocardial infarction; Z79.82 Long term (current) use of aspirin; Z79.899 Other long term (current) drug therapy
CPT/HCPCS: 36415; 71020 ×2; 80053; 81001; 83880; 84443; 84484; 85025; 93005; J1940; J7050; 80048; 82962; 83735; 85027; 93010; 93306; 93306-26; 96374; 99284; 99285-25; A9270-GY; J1650

== ENCOUNTER 2017-05-21 00:29 | Emergency (ER) | payer MEDICARE ==
--- NOTE | 2017-05-21 00:50 | EDM.PDOC ---
ED HPI GENERAL MEDICAL PROBLEM - General Chief Complaint: Chest Pain Stated Complaint: [facility] Time Seen by Provider: 05/21/17 00:39 Source of Information: Reports: Patient, RN Notes Reviewed History Limitations: Reports: No Limitations - History of Present Illness INITIAL COMMENTS - FREE TEXT/NARRATIVE: 77-year-old gentleman presents emergency department today via EMS services for complaint of chest pain, he has known history of coronary artery disease he does admit to overeating Thanksgiving leftovers today approximate 2 hours afterwards he developed some chest pain EMS services were called he did take aspirin today and received 3 nitroglycerin in route. At this time he is chest pain-free no nausea no vomiting no diaphoresis no shortness of breath chest pain Pain Score (Numeric/FACES): 2 - Related Data Allergies Allergy/AdvReac Type Severity Reaction Status Date / Time No Known Allergies Allergy Verified 01/16/17 08:48 Home Meds: Home Meds Doxazosin Mesylate [Cardura] 8 mg PO DAILY 02/04/14 [History] Dutasteride [Avodart] 0.5 mg PO DAILY 02/04/14 [History] Lisinopril 40 mg PO BID 02/04/14 [History] Multivit with Calcium,Iron,Min [Essential Daily] 1 each PO DAILY 02/04/14 [ History] Sildenafil [Viagra] 100 mg PO DAILY PRN 02/04/14 [History] Simvastatin 40 mg PO BEDTIME 02/04/14 [History] glyBURIDE [Glyburide] 5 mg PO BID 02/04/14 [History] metroNIDAZOLE [metroNIDAZOLE 0.75% Cream] 1 applic TOP BID 02/04/14 [History] Acetaminophen [Acetaminophen Extra Strength] 500 mg PO DAILY 02/15/14 [History] Aspirin [Ecotrin] 325 mg PO BEDTIME 01/16/17 [History] Triamcinolone Acetonide [Triamcinolone Acetonide 0.1% Oint] 1 dose TOP ASDIRECTED 01/16/17 [History] metFORMIN [Glucophage] 750 mg PO BIDMEALS 01/16/17 [History] Carvedilol [Coreg] 12.5 mg PO BID #60 tablet 01/18/17 [Rx] Furosemide 20 mg PO DAILY #30 tablet 01/18/17 [Rx] hydrALAZINE [Apresoline] 10 mg PO Q6H #120 tablet 01/18/17 [Rx] Past Medical History Cardiovascular History: Reports: CAD, Heart Failure, High Cholesterol, Hypertension, [place] Genitourinary History: Reports: Prostate Disorder Musculoskeletal History: Reports: Arthritis, Fracture Other Musculoskeletal History: shoulder [place] 2014 Endocrine/Metabolic History: Reports: Diabetes, Type II Hematologic History: Reports: Other (See Below) Other Hematologic History: takes asa every day since bypass Oncologic (Cancer) History: Reports: Other (See Below) Other Oncologic History: skin Dermatologic History: Reports: Other (See Below) Other Dermatologic History: see junior manufacturing engineer for 'sun spots' - Infectious Disease History Infectious Disease History: Reports: Chicken Pox, Measles, Mumps - Past Surgical History HEENT Surgical History: Reports: Tonsillectomy Cardiovascular Surgical History: Reports: Coronary Artery Bypass GI Surgical History: Reports: Hernia, Inguinal Social & Family History - Family History Cardiac: Reports: CAD - Tobacco Use Smoking Status *Q: Never Smoker Second Hand Smoke Exposure: No - Caffeine Use Caffeine Use: Reports: None - Alcohol Use Days Per Week of Alcohol Use: 3 Number of Drinks Per Day: 1 Total Drinks Per Week: 3 - Recreational Drug Use Recreational Drug Use: No ED ROS GENERAL - Review of Systems Review Of Systems: See Below Constitutional: Reports: No Symptoms Respiratory: Reports: No Symptoms Cardiovascular: Reports: Chest Pain GI/Abdominal: Reports: No Symptoms : Reports: No Symptoms ED EXAM, GENERAL - Physical Exam Exam: See Below Free Text/Narrative:: General: Male, not in any distress, alert and oriented x3 HEENT: head is atraumatic normocephalic, eyes pupils equal round reactive to light, sclera clear no conjunctivitis appreciated. Ears tympanic membranes clear and kline landmarks and light reflex are present bilaterally canals are clear. Nose no septal deviation, nares are clear, no blood present. Mouth mucosa is moist and pink no erythema or exudate noted in soft palate, tongue is midline uvula is midline, dentition is intact. Neck: Supple no thyromegaly no tracheal deviation. Nodes: Cervical nodes subclavicular nodes nontender no palpable lymphadenopathy noted. Lungs: clear to auscultation bilaterally with symmetrical respirations, no adventitious noise appreciated. CV: Regular rate and rhythm S1 and S2 appreciated no murmurs rubs or gallops noted. Abdomen: Soft, nontender, no palpable masses or organomegaly appreciated, no distention no guarding bowel sounds are present, . Neuro: Cranial nerves II through XII grossly intact Skin: Warm and dry, intact Extremities: No lower extremity edema appreciated, Course - Vital Signs Last Recorded V/S: Last Vital Signs Temp 97.2 F 05/21/17 00:33 Pulse 82 05/21/17 00:33 Resp 19 05/21/17 00:33 BP 185/83 H 05/21/17 00:33 Pulse Ox 94 L 05/21/17 00:33 - Orders/Labs/Meds Orders: Active Orders 24 hr Category Date Time Status Cardiac Monitoring [RC] .As Directed Care 05/21/17 00:46 Active EKG Documentation Completion [RC] ASDIRECTED Care 05/21/17 00:46 Active Chest 1V Frontal [CR] Stat Exams 05/21/17 00:46 Taken EKG 12 Lead [EK] Stat Ther 05/21/17 00:46 Ordered Labs: Laboratory Tests 05/21/17 05/21/17 Range/Units 00:56 00:56 WBC 7.3 (4.5-11.0) K/uL RBC 3.88 L (4.30-5.90) M/uL Hgb 11.8 L (12.0-15.0) g/dL Hct 35.4 L (40.0-54.0) % MCV 91 (80-98) fL MCH 30 (27-31) pg MCHC 33 (32-36) % Plt Count 172 (150-400) K/uL Neut % (Auto) 59 (36-66) % Lymph % (Auto) 30 (24-44) % [place] % (Auto) 8 H (2-6) % Eos % (Auto) 3 (2-4) % Baso % (Auto) 0 (0-1) % Sodium 145 (140-148) mmol/L Potassium 4.7 (3.6-5.2) mmol/L Chloride 108 (100-108) mmol/L Carbon Dioxide 28 (21-32) mmol/L Anion Gap 8.7 (5.0-14.0) mmol/L BUN 30 H (7-18) mg/dL Creatinine 1.1 (0.8-1.3) mg/dL Est Cr Clr Drug Dosing 56.24 mL/min Estimated GFR (MDRD) > 60 (>60) Glucose 202 H (74-106) mg/dL Calcium 8.9 (8.5-10.1) mg/dL Total Bilirubin 0.3 D (0.2-1.0) mg/dL AST 12 L (15-37) U/L ALT 18 (12-78) U/L Alkaline Phosphatase 47 (46-116) U/L CK-MB (CK-2) 0.7 (0-3.6) mg/mL Troponin I < 0.017 (0.000-0.056) ng/mL Total Protein 6.1 L (6.4-8.2) g/dL Albumin 3.0 L (3.4-5.0) g/dL Globulin 3.1 (2.3-3.5) g/dL Albumin/Globulin Ratio 1.0 L (1.2-2.2) Departure - Departure Time of Disposition: 01:39 Disposition: Home, Self-Care 01 Condition: Good Clinical Impression: Atypical chest pain Referrals: PCP,None [Primary Care Provider] - Forms: ED Department Discharge Additional Instructions: Please followup with your primary care provider in 3-5 days if not better, please call return to the emergency department with worsening of symptoms. - My Orders Last 24 Hours: My Active Orders 05/21/17 00:46 Cardiac Monitoring [RC] .As Directed EKG Documentation Completion [RC] ASDIRECTED Chest 1V Frontal [CR] Stat EKG 12 Lead [EK] Stat - Assessment/Plan Last 24 Hours: My Active Orders 05/21/17 00:46 Cardiac Monitoring [RC] .As Directed EKG Documentation Completion [RC] ASDIRECTED Chest 1V Frontal [CR] Stat EKG 12 Lead [EK] Stat Plan: Assessment Acuity = acute Site and laterality = atypical chest pain Etiology = probably related to indigestion Manifestations = none Location of injury = Home Lab values = CBC, CMP, troponin, CK-MB all within normal limits EKG does demonstrate bigeminy chest x-ray I did review films myself I cannot appreciate any acute process, the official read from radiology is pending Plan I did review lab work EKG results with him discuss options he elected to the home and do watchful waiting follow-up with primary care next 3-5 days if no improvement Patient was in agreement with the plan all questions were answered, they were instructed to return to the emergency department or call for worsening symptoms. This note was dictated using [employer] voice recognition software please call with any questions.
[2017-05-21 02:40] VITALS: BP 179/77
--- NOTE | 2017-05-23 09:09 | CR ---
Chest 1V Frontal FINDINGS: Intact sternal wires are demonstrated. The heart and vascular structures are normal in appe arance. No infiltrates or effusions are demonstrated. The skeletal structures are unremarkable. IMPRESSION: No acute findings..
== END 2017-05-21 02:12 | disposition home or self-care (01) ==
LOC: JP.ED 00:29
DX: R07.89 Other chest pain (principal); I11.0 Hypertensive heart disease with heart failure; I50.9 Heart failure, unspecified; E11.9 Type 2 diabetes mellitus without complications; I25.10 Atherosclerotic heart disease of native coronary artery without angina pectoris; Z79.82 Long term (current) use of aspirin; Z79.899 Other long term (current) drug therapy; Z95.1 Presence of aortocoronary bypass graft
CPT/HCPCS: 36415; 71010; 71010-26; 80053; 82553; 84484; 85025; 93005; 93010; 99284; 99285-25

== ENCOUNTER 2018-02-20 18:37 | Emergency (ER) | payer MEDICARE ==
[2018-02-20] MEDS ORDERED: Sodium Chloride 0.9% 500 ML IV SCH (19:15)
--- NOTE | 2018-02-20 19:20 | EDM.PDOC ---
ED HPI GENERAL MEDICAL PROBLEM - General Chief Complaint: Syncope Time Seen by Provider: 02/20/18 18:46 Source of Information: Reports: Patient History Limitations: Reports: No Limitations - History of Present Illness INITIAL COMMENTS - FREE TEXT/NARRATIVE: 77 yo presents to ER via EMS following syncope. Pt was standing in kitchen and turned to walk into living room and "dropped to the floor" states she heard him fall and came to he kitchen. He was pale and not abusable for 2-5 minutes. currently pt feels tired but that would be normal for him as he usually goes to bed at this time. He has also been suffering from vertigo and has been treating with antivert. last week for 3 days. He has had minimal symptoms since but spinning has not completely resolved. afebrile.denies nausea or diarrhea - Related Data Allergies Allergy/AdvReac Type Severity Reaction Status Date / Time No Known Allergies Allergy Verified 02/20/18 18:46 Home Meds: Home Meds Doxazosin Mesylate [Cardura] 8 mg PO DAILY 02/04/14 [History] Dutasteride [Avodart] 0.5 mg PO DAILY 02/04/14 [History] Lisinopril 40 mg PO BID 02/04/14 [History] Multivit with Calcium,Iron,Min [Essential Daily] 1 each PO DAILY 02/04/14 [ History] Sildenafil [Viagra] 100 mg PO DAILY PRN 02/04/14 [History] Simvastatin 40 mg PO BEDTIME 02/04/14 [History] glyBURIDE [Glyburide] 5 mg PO BID 02/04/14 [History] metroNIDAZOLE [metroNIDAZOLE 0.75% Cream] 1 applic TOP BID 02/04/14 [History] Acetaminophen [Acetaminophen Extra Strength] 500 mg PO DAILY 02/15/14 [History] Aspirin [Ecotrin] 325 mg PO BEDTIME 01/16/17 [History] Triamcinolone Acetonide [Triamcinolone Acetonide 0.1% Oint] 1 dose TOP ASDIRECTED 01/16/17 [History] metFORMIN [Glucophage] 1,000 mg PO BIDMEALS 01/16/17 [History] Carvedilol [Coreg] 12.5 mg PO BID #60 tablet 01/18/17 [Rx] Furosemide 20 mg PO DAILY #30 tablet 01/18/17 [Rx] hydrALAZINE [Apresoline] 10 mg PO Q6H #120 tablet 01/18/17 [Rx] Past Medical History HEENT History: Reports: Impaired Vision Cardiovascular History: Reports: CAD, Heart Failure, High Cholesterol, Hypertension, [place] Gastrointestinal History: Reports: Chronic Diarrhea Genitourinary History: Reports: Prostate Disorder Musculoskeletal History: Reports: Arthritis, Fracture Other Musculoskeletal History: shoulder injury [place] 2014 Psychiatric History: Reports: Anxiety Endocrine/Metabolic History: Reports: Diabetes, Type II Hematologic History: Reports: Other (See Below) Other Hematologic History: takes asa every day since bypass Oncologic (Cancer) History: Reports: Other (See Below) Other Oncologic History: skin Dermatologic History: Reports: Other (See Below) Other Dermatologic History: see weapons designer for 'sun spots' - Infectious Disease History Infectious Disease History: Reports: Chicken Pox, Measles, Mumps - Past Surgical History Head Surgeries/Procedures: Reports: None HEENT Surgical History: Reports: Tonsillectomy Cardiovascular Surgical History: Reports: Coronary Artery Bypass GI Surgical History: Reports: Hernia, Inguinal Musculoskeletal Surgical History: Reports: None Oncologic Surgical History: Reports: None Dermatological Surgical History: Reports: None Social & Family History - Family History Cardiac: Reports: CAD - Tobacco Use Smoking Status *Q: Former Smoker Used Tobacco, but Quit: Yes Month/Year Tobacco Last Used: 1962 - Caffeine Use Caffeine Use: Reports: None - Recreational Drug Use Recreational Drug Use: No ED ROS GENERAL - Review of Systems Review Of Systems: See Below Constitutional: Denies: Fever, Chills, Malaise, Fatigue HEENT: Denies: Sinus Problem Respiratory: Denies: Shortness of Breath, Wheezing, Cough Cardiovascular: Reports: Edema (1+ pitting), Syncope. Denies: Chest Pain GI/Abdominal: Denies: Abdominal Pain, Diarrhea Skin: Denies: Rash Neurological: Reports: Dizziness. Denies: Headache Psychiatric: Denies: Anxiety - Physical Exam Exam: See Below Exam Limited By: No Limitations General Appearance: Alert, WD/WN, No Apparent Distress Eye Exam: Bilateral Eye: PERRL Throat/Mouth: Normal Lips, Normal Teeth, Normal Gums, Normal Voice, No Airway Compromise, Other (dry mucous membranes) Head Exam: Atraumatic, Normocephalic Neck: Supple, Non-Tender, Full Range of Motion. No: Lymphadenopathy (R), Lymphadenopathy (L) Respiratory/Chest: No Respiratory Distress, Lungs Clear, Normal Breath Sounds, No Accessory Muscle Use, Chest Non-Tender. No: Crackles, Rhonchi, Wheezing Cardiovascular: Normal Peripheral Pulses, Regular Rate, Rhythm, No Murmur, No Rub, Other (1+ pitting edema LE) GI/Abdominal: Normal Bowel Sounds, Soft, Non-Tender, No Mass Neuro Exam (Abbreviated): Alert, Oriented, CN II-XII Intact, Normal Cognition Psychiatric: Normal Affect, Normal Mood Skin Exam: Warm, Dry, Intact, No Rash Course - Vital Signs Last Recorded V/S: Last Vital Signs Temp 35.8 C 02/20/18 18:55 Pulse 49 L 02/20/18 19:50 Resp 15 02/20/18 19:50 BP 109/71 02/20/18 19:50 Pulse Ox 93 L 02/20/18 19:50 Orthostatic Blood Pressure [ 152/78 Standing] Orthostatic Blood Pressure [ 146/80 Sitting] Orthostatic Blood Pressure [ 142/82 Supine] - Orders/Labs/Meds Orders: Active Orders 24 hr Category Date Time Status EKG Documentation Completion [RC] ASDIRECTED Care 02/20/18 19:33 Active Orthostatic Vital Signs [RC] ASDIRECTED Care 02/20/18 19:54 Active Sodium Chloride 0.9% [Normal Saline] 500 ml Med 02/20/18 19:15 Active IV ASDIRECTED EKG 12 Lead [EK] Routine Ther 02/20/18 19:33 Ordered Medication Orders Sodium Chloride (Normal Saline) 500 mls @ 500 mls/hr IV ASDIRECTED JOSE DAVID Last Admin: 02/20/18 19:20 Dose: 500 mls/hr Labs: Laboratory Tests 02/20/18 02/20/18 Range/Units 19:35 19:35 WBC 9.9 (4.5-11.0) K/uL RBC 4.14 L (4.30-5.90) M/uL Hgb 12.9 (12.0-15.0) g/dL Hct 37.8 L (40.0-54.0) % MCV 91 (80-98) fL MCH 31 (27-31) pg MCHC 34 (32-36) % Plt Count 172 (150-400) K/uL Neut % (Auto) 71 H (36-66) % Lymph % (Auto) 22 L (24-44) % [place] % (Auto) 5 (2-6) % Eos % (Auto) 2 (2-4) % Baso % (Auto) 0 (0-1) % Sodium 142 (140-148) mmol/L Potassium 4.1 (3.6-5.2) mmol/L Chloride 106 (100-108) mmol/L Carbon Dioxide 28 (21-32) mmol/L Anion Gap 7.8 (5.0-14.0) mmol/L BUN 29 H (7-18) mg/dL Creatinine 1.1 (0.8-1.3) mg/dL Est Cr Clr Drug Dosing 56.24 mL/min Estimated GFR (MDRD) > 60 (>60) Glucose 183 H (74-106) mg/dL Calcium 9.2 (8.5-10.1) mg/dL Total Bilirubin 0.5 D (0.2-1.0) mg/dL AST 13 L (15-37) U/L ALT 16 (12-78) U/L Alkaline Phosphatase 53 (46-116) U/L Total Protein 6.5 (6.4-8.2) g/dL Albumin 3.3 L (3.4-5.0) g/dL Globulin 3.2 (2.3-3.5) g/dL Albumin/Globulin Ratio 1.0 L (1.2-2.2) Meds: Medications Generic Name Dose Route Start Last Admin Trade Name Freq PRN Reason Stop Dose Admin Sodium Chloride 500 mls @ 500 mls/hr 02/20/18 19:15 02/20/18 19:20 Normal Saline IV 500 mls/hr ASDIRECTED [facility] Administration - Re-Assessments/Exams Free Text/Narrative Re-Assessment/Exam: 02/20/18 20:52 pt was able to ambulate without difficulty. resting pulse did slow to 45 while he was sleeping. pt feels ready to go home and will follow-up with PCP this week Departure - Departure Time of Disposition: 20:52 Disposition: Home, Self-Care 01 Condition: Good Clinical Impression: Syncope Qualifiers: Syncope type: unspecified Qualified Code(s): R55 - Syncope and collapse - Discharge Information *PRESCRIPTION DRUG MONITORING PROGRAM REVIEWED*: Not Applicable *COPY OF PRESCRIPTION DRUG MONITORING REPORT IN PATIENT KVNG: Not Applicable Instructions: Syncope, [id number] Referrals: PCP,None [Primary Care Provider] - Forms: ED Department Discharge Additional Instructions: follow-up with primary care this week your heart rate did slow to 45 while you were sleeping in the emergency room maintain fluid intake of 1 liter per day - My Orders Last 24 Hours: My Active Orders 02/20/18 19:15 Sodium Chloride 0.9% [Normal Saline] 500 ml IV ASDIRECTED 02/20/18 19:33 EKG Documentation Completion [RC] ASDIRECTED EKG 12 Lead [EK] Routine 02/20/18 19:54 Orthostatic Vital Signs [RC] ASDIRECTED - Assessment/Plan Last 24 Hours: My Active Orders 02/20/18 19:15 Sodium Chloride 0.9% [Normal Saline] 500 ml IV ASDIRECTED 02/20/18 19:33 EKG Documentation Completion [RC] ASDIRECTED EKG 12 Lead [EK] Routine 02/20/18 19:54 Orthostatic Vital Signs [RC] ASDIRECTED
[2018-02-20 20:03] VITALS: BP 109/71
== END 2018-02-20 21:09 | disposition home or self-care (01) ==
LOC: JP.ED 18:37
DX: R55 Syncope and collapse (principal); I11.0 Hypertensive heart disease with heart failure; I50.9 Heart failure, unspecified; E11.9 Type 2 diabetes mellitus without complications; Z79.82 Long term (current) use of aspirin; Z79.84 Long term (current) use of oral hypoglycemic drugs; Z79.899 Other long term (current) drug therapy
CPT/HCPCS: 36415; 80053; 85025; 93005; 96360; 99284; J7030

== ENCOUNTER 2018-03-17 10:33 | Emergency (ER) | payer MEDICARE, OTHER ==
[2018-03-17] MEDS ORDERED: Diltiazem 25 MG/5 ML SDV IVPUSH ONE (10:43)
--- NOTE | 2018-03-17 10:49 | EDM.PDOC ---
ED HPI GENERAL MEDICAL PROBLEM - General Chief Complaint: Cardiovascular Problem Stated Complaint: AFIB Time Seen by Provider: 03/17/18 10:39 Source of Information: Reports: Patient, Family, Provider, RN Notes Reviewed History Limitations: Reports: No Limitations - History of Present Illness INITIAL COMMENTS - FREE TEXT/NARRATIVE: 77-year-old gentleman sent over from the clinic for a new onset atrial fibrillation, his only complaint is that he feels his heart racing he is never had any bouts of atrial fibrillation in the past he is pretty confident that this event started yesterday went away and then returned again this morning. No shortness of breath no chest pains no nausea vomiting does have a past medical history of hypertension dyslipidemia and diabetes mellitus type 2 does have a history of myocardial infarction in the past. Echocardiogram done 2016 shows normal left ventricular function however there is mild enlargement of the right ventricle with elevated pressure. - Related Data Allergies Allergy/AdvReac Type Severity Reaction Status Date / Time No Known Allergies Allergy Verified 02/20/18 18:46 Home Meds: Home Meds Doxazosin Mesylate [Cardura] 8 mg PO DAILY 02/04/14 [History] Dutasteride [Avodart] 0.5 mg PO DAILY 02/04/14 [History] Lisinopril 40 mg PO BID 02/04/14 [History] Multivit with Calcium,Iron,Min [Essential Daily] 1 each PO DAILY 02/04/14 [ History] Sildenafil [Viagra] 100 mg PO DAILY PRN 02/04/14 [History] Simvastatin 40 mg PO BEDTIME 02/04/14 [History] glyBURIDE [Glyburide] 5 mg PO BID 02/04/14 [History] metroNIDAZOLE [metroNIDAZOLE 0.75% Cream] 1 applic TOP BID 02/04/14 [History] Acetaminophen [Acetaminophen Extra Strength] 500 mg PO DAILY 02/15/14 [History] Aspirin [Ecotrin] 325 mg PO BEDTIME 01/16/17 [History] Triamcinolone Acetonide [Triamcinolone Acetonide 0.1% Oint] 1 dose TOP ASDIRECTED 01/16/17 [History] metFORMIN [Glucophage] 1,000 mg PO BIDMEALS 01/16/17 [History] Carvedilol [Coreg] 12.5 mg PO BID #60 tablet 01/18/17 [Rx] Furosemide 20 mg PO DAILY #30 tablet 01/18/17 [Rx] hydrALAZINE [Apresoline] 10 mg PO Q6H #120 tablet 01/18/17 [Rx] Apixaban [Eliquis] 5 mg PO BID #60 tablet 03/17/18 [Rx] Past Medical History HEENT History: Reports: Impaired Vision Cardiovascular History: Reports: CAD, Heart Failure, High Cholesterol, Hypertension, [place] Gastrointestinal History: Reports: Chronic Diarrhea Genitourinary History: Reports: Prostate Disorder Musculoskeletal History: Reports: Arthritis, Fracture Other Musculoskeletal History: shoulder [place] 2014 Psychiatric History: Reports: Anxiety Endocrine/Metabolic History: Reports: Diabetes, Type II Hematologic History: Reports: Other (See Below) Other Hematologic History: takes asa every day since bypass Oncologic (Cancer) History: Reports: Other (See Below) Other Oncologic History: skin Dermatologic History: Reports: Other (See Below) Other Dermatologic History: see forensic photographer for 'sun spots' - Infectious Disease History Infectious Disease History: Reports: Chicken Pox, Measles, Mumps - Past Surgical History Head Surgeries/Procedures: Reports: None HEENT Surgical History: Reports: Tonsillectomy Cardiovascular Surgical History: Reports: Coronary Artery Bypass GI Surgical History: Reports: Hernia, Inguinal Musculoskeletal Surgical History: Reports: None Oncologic Surgical History: Reports: None Dermatological Surgical History: Reports: None Social & Family History - Family History Cardiac: Reports: CAD - Tobacco Use Smoking Status *Q: Never Smoker - Caffeine Use Caffeine Use: Reports: Coffee, Soda, Tea ED ROS GENERAL - Review of Systems Review Of Systems: See Below Constitutional: Reports: No Symptoms HEENT: Reports: No Symptoms Respiratory: Denies: Shortness of Breath Cardiovascular: Reports: Palpitations. Denies: Chest Pain GI/Abdominal: Reports: No Symptoms : Reports: No Symptoms Musculoskeletal: Reports: No Symptoms Skin: Reports: No Symptoms Neurological: Reports: No Symptoms ED EXAM, GENERAL - Physical Exam Exam: See Below Exam Limited By: No Limitations General Appearance: Alert, WD/WN, No Apparent Distress Head: Atraumatic, Normocephalic Neck: Normal Inspection, Supple, Non-Tender, Full Range of Motion Respiratory/Chest: Lungs Clear, Normal Breath Sounds Cardiovascular: Tachycardia GI/Abdominal: Soft, Non-Tender Extremities: Pedal Edema ED CARDIOLOGY PROCEDURES - Additional/Other Procedure(s) Other (Free Text) Procedure(s): Preprocedure diagnosis: Atrial fibrillation with rapid ventricular response Postprocedure diagnosis: Respiratory sinus arrhythmia Indication for procedure: Palpitations Performing physician: Daniele Gerber M.D. Procedure: Patient is located emergency department. Review risks and benefits of electrical cardioversion including but not limited to: Superficial skin coombs , effective treatment, unknown arrhythmias, reaction to anesthesia medications or asystole. The risks and benefits to this procedure have been discussed. Patient wishes to proceed with electrical cardioversion. The patient was connected to cardioversion pads with EKG monitoring, oxygen via nasal cannula with equipment of intubation and suction in the room. Paperwork was completed prior to the procedure with timeout performed by nursing staff. After adequate anesthesia was achieved the machine was charged to 200 joules and a synchronized electrical shock was applied. Patient was successfully converted to normal sinus rhythm based on telemetry monitoring. Patient will remain in the emergency department for post anesthesia care until awake and alert. Plan is to discharge home. Anticoagulation of Eliquis Consultations: None apparent Postprocedural EKG: Respiratory sinus arrhythmia Course - Vital Signs Last Recorded V/S: Last Vital Signs Temp 97.2 F 03/17/18 10:54 Pulse 95 03/17/18 11:41 Resp 20 03/17/18 10:54 BP 123/66 03/17/18 11:41 Pulse Ox 98 03/17/18 10:54 - Orders/Labs/Meds Orders: Active Orders 24 hr Category Date Time Status EKG Documentation Completion [RC] ASDIRECTED Care 03/17/18 12:46 Active Diltiazem [Cardizem] 100 mg Med 03/17/18 11:45 Active Sodium Chloride 0.9% [Normal Saline] 100 ml IV TITRATE EKG 12 Lead [EK] Stat Ther 03/17/18 12:46 Ordered Medication Orders Diltiazem HCl 100 mg/ Sodium (Chloride) 100 mls @ 5 mls/hr IV TITRATE JOSE DAVID; Protocol Last Admin: 03/17/18 11:41 Dose: 5 mg/hr, 5 mls/hr Meds: Medications Generic Name Dose Route Start Last Admin Trade Name Freq PRN Reason Stop Dose Admin Diltiazem HCl 100 mg/ Sodium 100 mls @ 5 mls/hr 03/17/18 11:45 03/17/18 11:41 Chloride IV 5 mg/hr TITRATE JOSE DAVID 5 mls/hr Administration Protocol 5 MG/HR Discontinued Medications Generic Name Dose Route Start Last Admin Trade Name Oswaldo PRN Reason Stop Dose Admin Diltiazem HCl 25 mg 03/17/18 10:43 03/17/18 10:46 Diltiazem IVPUSH 03/17/18 10:44 25 mg ONETIME ONE Administration Diltiazem HCl 125 mg/ Dextrose 125 mls @ 5 mls/hr 03/17/18 11:15 /Water IV TITRATE JOSE DAVID Protocol 5 MG/HR Propofol Confirm 03/17/18 13:06 Diprivan 20 Ml Administered 03/17/18 13:07 Dose 200 mg .ROUTE .STK-MED ONE Departure - Departure Time of Disposition: 13:19 Disposition: Home, Self-Care 01 Condition: Fair Clinical Impression: Atrial fibrillation with rapid ventricular response Prescriptions: Apixaban [Eliquis] 5 mg PO BID #60 tablet Referrals: Isaiah Tinoco MD [Primary Care Provider] - Forms: ED Department Discharge Additional Instructions: Increased her Coreg from 12.5 mg twice a day to 25 mg once a day, start the Eliquis today your follow-up appointment with Dr. Murillo in 2 weeks - My Orders Last 24 Hours: My Active Orders 03/17/18 11:45 Diltiazem [Cardizem] 100 mg Sodium Chloride 0.9% [Normal Saline] 100 ml IV TITRATE 03/17/18 12:46 EKG Documentation Completion [RC] ASDIRECTED EKG 12 Lead [EK] Stat - Assessment/Plan Last 24 Hours: My Active Orders 03/17/18 11:45 Diltiazem [Cardizem] 100 mg Sodium Chloride 0.9% [Normal Saline] 100 ml IV TITRATE 03/17/18 12:46 EKG Documentation Completion [RC] ASDIRECTED EKG 12 Lead [EK] Stat Plan: Assessment Acuity = acute Site and laterality = atrial fibrillation with rapid ventricular response complicated patient with known history coronary artery disease status post CABG but normal left ventricular function, diabetes, hypertension and dyslipidemia Etiology = unknown etiology Manifestations = palpitations now resolved Location of injury = Home Lab values = CBC and BMP done in the clinic unremarkable troponin and CK-MB done here within normal limits, initial EKG done in the clinic shows atrial fibrillation 140s, post EKG shows sinus rhythm consistent with a respiratory sinus arrhythmia Plan Discuss case with his primary care provider Dr. Tinoco because his chads score is 4 he is at risk for stroke and suspicious he may have gone in and out of atrial fibrillation in the past were then increase his Coreg to 25 mg by mouth twice a day and start him on the medication of Eliquis he doesn't follow- up appointment with his primary care in 2 weeks This note was dictated using [employer] voice recognition software please call with any questions on syntax or grammar.
[2018-03-17] MEDS ORDERED: Diltiazem 100 MG in Sodium Chloride 0.9% 100 ML IV SCH (11:45)
[2018-03-17 11:46] VITALS: BP 123/66
[2018-03-17] MEDS ORDERED: Propofol 200 MG/20 ML SDV ONE (13:06)
== END 2018-03-17 13:35 | disposition home or self-care (01) ==
LOC: JP.ED 10:33
DX: I48.91 Unspecified atrial fibrillation (principal); Z79.899 Other long term (current) drug therapy; I11.0 Hypertensive heart disease with heart failure; I50.9 Heart failure, unspecified; E11.9 Type 2 diabetes mellitus without complications
CPT/HCPCS: 92960; 93005; 96365; 96376; 99284; J2704; J3490; J7030